=== PATIENT | female | born 1990 | race Hispanic/Latino ===

== ENCOUNTER 2019-01-28 13:46 | Emergency (ER) | payer OTHER ==
[~2019-01-28] VITALS: Ht 162.6 cm; Wt 83.9 kg
--- OUTSIDE RECORDS SUMMARY | 2019-01-28 13:48 | XMS REPORT ---
Author [facility] Address Unknown Phone Unavailable Care Team Providers Care Photographic Intelligence Officer Name Role Phone Unavailable Unavailable Payers Payer Name Policy Type Policy Number Effective Date Expiration Date Problems This patient has no known problems. Allergies, Adverse Reactions, Alerts Allergy Name Allergy Type Status Severity Reaction(s) Onset Date Inactive Date Treating Clinician Comments No Known Allergies DA Active U 2019-01-28 00:00:00 No Known Allergies DA Active U 2019-01-27 00:00:00 No Known Allergies DA Active U 2018-05-19 00:00:00 No Known Allergies DA Active U 2015-04-24 00:00:00 Medications This patient has no known medications. Results Test Description Test Time Test Comments Text Results Atomic Results Result Comments BASIC METABOLIC PANEL 2019-01-28 11:15:00 SODIUM (test code=NA) 140 mmol/L 136-145 POTASSIUM (test code=K) 3.5 mmol/L 3.5-5.1 CHLORIDE (test code=CL) 108.0 mmol/L 98-107 CARBON DIOXIDE (test code=CO2) 25.0 mmol/L 21-32 ANION GAP (test code=GAP) 10.5 10-20 GLUCOSE (test code=GLU) 114 mg/dL 74-106 BLOOD UREA NITROGEN (test code=BUN) 12 mg/dL 7-18 GLOMERULAR FILTRATION RATE (test code=GFR) > 60 mL/min >=60 Estimated GFR by using Modified MDRD formula.Chronic kidney disease is defined as either kidney damageor GFR <60 mL/min/1.73 m2 for >3 months. CREATININE (test code=CREAT) 0.70 mg/dL 0.55-1.02 Note change in reference range due to change in reagent. BUN/CREATININE RATIO (test code=BUN/CREA) 17.0 10-20 CALCIUM (test code=CA) 8.6 mg/dL 8.5-10.1 PROTHROMBIN [id number] 11:12:00* Test Item Value Reference Range Comments PROTHROMBIN TIME PATIENT (test code=PTP) 13.4 seconds 9.0-14.0 INTERNATIONAL NORMAL RATIO (test code=INR) 1.1 0.8-1.2 The therapeutic range for oral anticoagulant therapy formost indications is an international normalized ratio (INR)of between 2.0 and 3.0. The recommended therapeutic INRrange for various clinical situations is listed below: Clinical Situation INR range Pulmonary e mbolism treatment (2.0-3.0)Venous thrombosis treatmentVenous thrombosis prophylaxis (high risk surgery)Prevention of systemic embolism from: Acute myocardial infarction Valvular heart disease Atrial fibrillation Mechanical prosthetic heart valves (2.5-3.5) IS PATIENT ON ANTICOAGULANTS? NTHROMBOPLASTIN TIME [id number] 11:12:00* Test Item Value Reference Range Comments THROMBOPLASTIN TIME PARTIAL (test code=PTT) 32.4 seconds 25.0-36.5 IS PATIENT ON ANTICOAGULANTS? NCBC W/AUTO [id number] 11:12:00* Test Item Value Reference Range Comments WHITE BLOOD CELL (test code=WBC) 8.2 K/mm3 4.5-12.5 RED BLOOD CELL (test code=RBC) 5.05 mill/mm3 3.7-5.2 HEMOGLOBIN (test code=HGB) 12.1 gram/dL 11.5-15.5 HEMATOCRIT (test code=HCT) 38.7 % 36.0-46.0 MEAN CELL VOLUME (test code=MCV) 76.6 fL 80-98 MEAN CELL HGB (test code=MCH) 24.0 picogram 27.0-33.0 MEAN CELL HGB CONCETRATION (test code=MCHC) 31.3 gram/dL 33.0-36.0 RED CELL DISTRIBUTION WIDTH (test code=RDW) 15.0 % 11.6-16.2 RED CELL DISTRIBUTION WIDTH SD (test code=RDW-SD) 41.1 fL 37.0-51.0 PLATELET COUNT (test code=PLT) 262 K/mm3 150-450 MEAN PLATELET VOLUME (test code=MPV) 11.2 fL 6.7-11.0 NEUTROPHIL % (test code=NT%) 73.9 % 39.0-69.0 IMMATURE GRANULOCYTE % (test code=IG%) 0.5 % 0.0-5.0 LYMPHOCYTE % (test code=LY%) 19.2 % 25.0-55.0 MONOCYTE % (test code=MO%) 4.7 % 0.0-10.0 EOSINOPHIL % (test code=EO%) 1.1 % 0.0-5.0 BASOPHIL % (test code=BA%) 0.6 % 0.0-1.0 NUCLEATED RBC % (test code=NRBC%) 0.0 % 0-0 NEUTROPHIL # (test code=NT#) 6.08 K/mm3 1.8-7.7 IMMATURE GRANULOCYTE # (test code=IG#) 0.04 x10 3/uL 0-0.03 LYMPHOCYTE # (test code=LY#) 1.58 K/mm3 1.0-5.0 MONOCYTE # (test code=MO#) 0.39 K/mm3 0-0.8 EOSINOPHIL # (test code=EO#) 0.09 K/mm3 0.0-0.5 BASOPHIL # (test code=BA#) 0.05 K/mm3 0.0-0.2 NUCLEATED RBC # (test code=NRBC#) 0.00 K/mm3 0.0-0.1 BASIC METABOLIC [id number] 11:10:00* Test Item Value Reference Range Comments SODIUM (test code=NA) 140 mmol/L 136-145 POTASSIUM (test code=K) 3.5 mmol/L 3.5-5.1 CHLORIDE (test code=CL) 108.0 mmol/L 98-107 CARBON DIOXIDE (test code=CO2) mmol/L 21-32 ANION GAP (test code=GAP) 10-20 GLUCOSE (test code=GLU) mg/dL 74-106 BLOOD UREA NITROGEN (test code=BUN) mg/dL 7-18 GLOMERULAR FILTRATION RATE (test code=GFR) mL/min >=60 CREATININE (test code=CREAT) mg/dL 0.55-1.02 BUN/CREATININE RATIO (test code=BUN/CREA) 10-20 CALCIUM (test code=CA) mg/dL 8.5-10.1 URINALYSIS [id number] 10:48:00* Test Item Value Reference Range Comments UA COLOR (test code=COLU) YELLOW YELLOW UA APPEARANCE (test code=APPU) Cloudy CLEAR UA GLUCOSE DIPSTICK (test code=DGLUU) NEGATIVE mg/dL NEGATIVE UA BILIRUBIN DIPSTICK (test code=BILU) NEGATIVE mg/dL NEGATIVE UA KETONE DIPSTICK (test code=KETU) NEGATIVE mg/dL NEGATIVE UA SPECIFIC GRAVITY (test code=SGU) 1.028 1.001-1.035 UA BLOOD DIPSTICK (test code=JOHNSON) Negative mg/dL NEGATIVE UA PH DIPSTICK (test code=DESMOND) 7.0 5.0-8.0 UA PROTEIN DIPSTICK (test code=PROU) 50 (1+) mg/dL NEGATIVE UA UROBILINIOGEN DIPSTICK (test code=URO) Normal mg/dL NEGATIVE UA NITRITE DIPSTICK (test code=MATT) NEGATIVE NEGATIVE UA LEUKOCYTE ESTERASE W REFLEX (test code=LEUUR) 75 Patricia/uL (1+) Patricia/uL NEGATIVE UA WBC (test code=WBCU) 11-20 per HPF 0-5 UA RBC (test code=RBCU) 0-2 #/HPF 0-5 UA EPITHELIAL CELLS (test code=EPIU) MOD per HPF FEW UA BACTERIA (test code=BACU) FEW #/HPF NONE UA MUCUS (test code=MUCU) MODERATE #/LPF FEW Urine Source? Clean Catch- CT HEAD/BRAIN W/O [id number] 21:33:00 Name: LUISA LEMUS [facility] : 1990 Age/S: 28 / F Ariadna Garcia Unit #: [id number] Loc: [place] [address] Phys: Kane Vasquez DO Acct: [id number] Dis Date: Status: REG ER PHONE #: Exam Date: 01/27/2019 2100 FAX #: [phone] Reason: headache EXAMS: CPT CODE: [id number] CT HEAD/BRAIN W/O CONT [id number] EXAM: CT of the head; INFORMATION: Headache; TECHNIQUE AND FINDINGS: CT dose reduction protocol; The ventricles are symmetric and of normal diameter; normal width of basilar cisterns and sulci; normal aiken/white matter differentiation; no evidence of intra or extra-axial hemorrhage, mass lesion or midline shift. Bone windows show no abnormalities. Th e calvarium is intact. Extensive mucosal swelling in the left maxillary, e thmoid and sphenoid sinuses. Air-fluid level in the left maxillary sinus a nd the left sphenoid sinus. Mastoid air cells are well aerated. IMPRESSION: 1. Normal CT scan of the brain. 2. S inusitis. at 2133 Reported and signed by: Nahun Ayala M.D. CC: Kane Vasquez DO Technologist:Celina PINEDA(R); GUERLINE Russell CTDI: DLP: Trnscb Date/Time: 01/27/2019 (2132) [email or web address] Orig Print D/T: S: 01/27/2019 (2135) PAGE 1 Signed Report HCG SERUM QUAL 2019-01-27 20:03:00* Test Item Value Reference Range Comments HCG SERUM QUAL (test code=HCGQL) NEGATIVE NEGATIVE This HCGQL test is NOT applicable for MALE patients.Check with nurse about probable order error.If Tumor Marker Test needed, nurse should order test "HCGTU"(Test #[id number])
[2019-01-28] MEDS ORDERED: HYDRALAZINE HCL 20 MG/ML VIAL IV STA ×2 (13:58→17:14)
[2019-01-28] MEDS ORDERED: CLONIDINE HCL 0.1 MG TAB PO ONE (14:00)
[2019-01-28 14:29] LABS: BASOPHILS % 0.5 % (0.0-1.0); EOSINOPHILS # (AUTO) 0.1 (0.0-0.4); EOSINOPHILS % 0.7 % (0.0-6.0); HEMATOCRIT 39.2 % (34.2-44.1); HEMOGLOBIN 12.4 g/dL (12.0-16.0); LYMPHOCYTES # (AUTO) 1.7 (1.0-3.2); LYMPHOCYTES % 18.9 % (18.0-39.1); MEAN CORPUSCULAR HGB CONC 31.6 g/dL (31-35); MEAN CORPUSCULAR VOLUME 75.8 fL (81-99); MONOCYTES # (AUTO) 0.4 (0.2-0.8); MONOCYTES % 4.5 % (4.4-11.3); NEUTROPHILS # (AUTO) 6.6 (2.1-6.9); NEUTROPHILS % 75.1 % (38.7-80.0); PLATELET COUNT 283 x10e3/uL (140-360); RED BLOOD COUNT 5.17 x10e6/uL (3.6-5.1); RED CELL DISTRIBUTION WIDTH 14.9 % (11.7-14.4)
[2019-01-28 14:30] LABS: BILIRUBIN,URINE NEGATIVE (NEGATIVE); CLARITY,URINE SL CLOUDY (CLEAR); COLOR,URINE YELLOW (YELLOW); KETONES,URINE NEGATIVE (NEGATIVE); LEUKOCYTE ESTERASE ,URINE NEGATIVE (NEGATIVE); NITRITE,URINE NEGATIVE (NEGATIVE); URINE UROBILINOGEN 0.2 mg/dL (0.2 - 1)
[2019-01-28 14:31] LABS: PROTEIN,URINE DIPSTICK 2+ (NEGATIVE)
[2019-01-28 14:42] LABS: INR 0.97; PROTHROMBIN TIME 13.4 seconds (11.9-14.5)
[2019-01-28 14:48] LABS: AMORPHOUS SEDIMENT,URINE MODERATE (FEW); BACTERIA,URINE MANY /HPF; EPITHELIAL CELLS,URINE FEW /LPF; HYALINE CASTS 0-1 (0-1); MUCUS,URINE FEW (RARE); WBC,URINE (MAN) 0-5 /HPF (0-5)
[2019-01-28 14:51] LABS: ALANINE AMINOTRANSFERASE 11 IU/L (0-55); ALBUMIN 3.8 g/dL (3.5-5.0); ALBUMIN/GLOBULIN RATIO 0.9 (0.8-2.0); ALKALINE PHOSPHATASE 76 IU/L (40-150); ANION GAP 14.5 mmol/L (8-16); BLOOD UREA NITROGEN 13 mg/dL (7-26); BUN/CREATININE RATIO 17 (6-25); CALCIUM 9.5 mg/dL (8.4-10.2); CARBON DIOXIDE 23 mmol/L (22-29); CHLORIDE 104 mmol/L (98-107); CREATINE KINASE 106 IU/L (29-168); CREATININE, SERUM 0.76 mg/dL (0.57-1.11); EST GLOMERULAR FILTRATION RATE > 60 ML/MIN (60-); GLUCOSE 108 mg/dL (74-118); POTASSIUM 3.5 mmol/L (3.5-5.1); SODIUM 138 mmol/L (136-145)
--- NOTE | 2019-01-28 14:57 | Diagnostic Imaging Report ---
Exam: Head CT without contrast History: Headache Comparison studies: None Technique: Axial images were obtained from the skull base to the vertex. Coronal and sagittal images reconstructed from the axial data. Dose modulation, iterative reconstruction, and/or weight based adjustment of the mA/kV was utilized to reduce the radiation dose to as low as reasonably achievable. Radiation dose: Total DLP: 832 mGy*cm. Estimated effective dose: DLP x 0.015 Intravenous contrast: None Findings: Scalp: No abnormalities. Bones: No fractures, blastic or lytic lesions. Brain sulci: Appropriate for age. Ventricles: Normal in size and configuration. No hydrocephalus. Extra-axial spaces: No masses, no fluid collection. Parenchyma: No abnormal densities. No masses, acute hemorrhage, acute or chronic vascular insults. Sellar/suprasellar region: No abnormalities. Craniocervical junction: Patent foramen magnum. No Chiari one malformation. Included paranasal sinuses: Partially opacified left sinus. Included left ethmoids and left maxillary sinus are nearly completely opacified. Mild nonspecific mucosal thickening in the right frontal sinus. IMPRESSION: 1. No acute intracranial abnormalities. 2. Nonspecific, predominantly left-sided, paranasal sinusitis. Signed by: Dr. Jessee Mckeon M.D. on 01/28/2019 2:53 PM
[2019-01-28] MEDS ORDERED: KETOROLAC TROMETHAMINE 30 MG/ML VIAL IV STA (15:14)
[2019-01-28] MEDS ORDERED: SODIUM CHLORIDE 0.9% 1000ML 1,000 ML IV STA ×2 (15:14→17:55)
[2019-01-28] MEDS ORDERED: DIPHENHYDRAMINE HCL INJ 50 MG/ML VIAL IV ONE (15:15)
[2019-01-28] MEDS ORDERED: METOCLOPRAMIDE HCL 10 MG/2ML VIAL IV ONE (15:15)
[2019-01-28] MEDS ORDERED: NIFEDIPINE 10 MG CAP PO STA (16:39)
[2019-01-28] MEDS ORDERED: HYDRALAZINE HCL 20 MG/ML VIAL ONE (17:22)
[2019-01-28] MEDS ORDERED: ACETAMIN/BUTALBITAL/CAFFEINE TAB PO ONE (18:00)
--- NOTE | 2019-01-28 18:23 | NUR ---
ASKED NATURAL FABRICATOR IF UDS /TSH NEEDED. HE STATED OK TO PLACE ORDER.
[2019-01-28] MEDS ORDERED: LABETALOL HCL 5 MG/ML 20ML VIAL IV STA (19:47)
--- NOTE | 2019-01-28 19:54 | NUR ---
urine collected and sent to the lab.
[2019-01-28 20:01] LABS: AMPHETAMINES SCREEN,URINE NEGATIVE (NEGATIVE); BENZODIAZEPINES SCREEN,URINE NEGATIVE (NEGATIVE); PHENCYCLIDINE SCREEN,URINE NEGATIVE (NEGATIVE)
[2019-01-28 20:29] VITALS: BP 147/97
== END 2019-01-28 20:42 | disposition home or self-care (01) ==
LOC: ER 13:46
DX: G44.211 Episodic tension-type headache, intractable (principal); R11.2 Nausea with vomiting, unspecified; I10 Essential (primary) hypertension
CPT/HCPCS: 36415; 70450; 80053; 80307; 81001; 81025; 82550; 82553; 84443; 84484; 85025; 85610; 85730; 87086; 93005; 99284; J0360; J1200; J1885; J2765; J3490; J7030

== ENCOUNTER 2024-03-17 19:23 | Emergency (ER) | payer BC, OTHER ==
[~2024-03-17] VITALS: Ht 157.5 cm; Wt 86.2 kg
[2024-03-17 19:34] VITALS: PULSE 100; RESP 15; TEMP 98.8; O2SAT 99
[2024-03-17] MEDS ORDERED: ONDANSETRON ODT4 MG PO (19:46)
[2024-03-17] MEDS: ONDANSETRON HCL 4 MG ORAL DISINTEGRATING TAB PO ONE (20:00)
== END 2024-03-17 20:07 | disposition home or self-care (01) ==
LOC: FSED 19:25
DX: R11.2 Nausea with vomiting, unspecified (principal); R19.7 Diarrhea, unspecified; I10 Essential (primary) hypertension; E66.9 Obesity, unspecified
CPT/HCPCS: 81025; 99283; Q0162